=== PATIENT | male | born 1995 | race Caucasian/White ===

== ENCOUNTER 2018-12-03 12:16 | Emergency (ER) | payer BC, OTHER ==
[2018-12-03 13:00] LABS: Absolute Lymphocytes (CBC) 4.2 K/uL (0.7-4.9); Absolute Monocytes 0.4 K/uL (0.1-1.3); Absolute Neutrophil 3.7 K/uL (1.8-8.0); Basophils % 0.9 % (0-1.3); Eosinophils % 2.3 % (0-4.4); Hematocrit 43.2 % (39.6-49.0); Lymphocytes % 49.4 % (15.3-44.8); MPV 9.4 fL (7.6-11.3); Monocytes % 4.4 % (3.3-12.3); RBC Red Blood Cell Count 4.74 M/uL (4.33-5.43)
[2018-12-03 13:34] LABS: ALT/SGPT 58 U/L (12-78); AST/SGOT 41 U/L (15-37); Albumin 3.8 g/dL (3.4-5.0); Alkaline Phosphatase 87 U/L (45-117); BUN Blood Urea Nitrogen 10 mg/dL (7-18); Bicarbonate 28 mmol/L (21-32); Bilirubin Direct 0.2 mg/dL (0-0.2); Bilirubin Total 0.6 mg/dL (0.2-1.0); Glucose Level 100 mg/dL (74-106); Lipase 211 U/L (73-393); Potassium 3.2 mmol/L (3.5-5.1); Protein, Total 7.2 g/dL (6.4-8.2); Sodium Level 144 mmol/L (136-145)
--- NOTE | 2018-12-03 13:51 | RAD REPORT ---
EXAM DESCRIPTION: US - Abdomen Exam Limited - 12/03/2018 1:44 pm CLINICAL HISTORY: EPIGASTRIC PAIN COMPARISON: No comparisons FINDINGS: The gallbladder demonstrates mobile shadowing gallstones. No pericholecystic fluid or gall bladder wall thickening. The common bile duct is normal measuring 4-5 mm. The liver demonstrates no findings of intrahepatic biliary dilatation. IMPRESSION: Cholelithiasis.
[2018-12-03] MEDS ORDERED: PANTOPRAZOLE 40 MG INJ ONE (13:57)
[2018-12-03] MEDS ORDERED: NA CHLORIDE 0.9% 1,000 ML ONE (13:57)
[2018-12-03] MEDS ORDERED: ONDANSETRON 4 MG/2 ML VIAL ONE (13:57)
[2018-12-03] MEDS ORDERED: MORPHINE 4 MG/ML SYR ONE (13:57)
[2018-12-03] MEDS ORDERED: MAGNE/ALUM HYDROXD 30 ML UCUP ONE (14:04)
[2018-12-03] MEDS ORDERED: LIDOCAINE VISCOUS 2% SOLN 15 ML UDC ONE (14:05)
[2018-12-03] MEDS ORDERED: POTASSIUM 25 MEQ EFFERV TAB ONE (14:05)
--- NOTE | 2018-12-03 14:06 | RAD REPORT ---
EXAM DESCRIPTION: RAD - Chest Single View - 12/03/2018 2:00 pm CLINICAL HISTORY: epigastric pain Chest pain. COMPARISON: Chest Single View dated 08/13/2016; Chest Single View dated 07/24/2016; CHEST SINGLE VIEW dated 05/17/2014; CHEST PA AND LAT 2 VIEW dated 12/03/2010 FINDINGS: Portable technique limits examination quality. The lungs are grossly clear. The heart is normal in size. No displaced fractures. IMPRESSION: No acute intrathoracic process suspected.
--- NOTE | 2018-12-03 14:08 | ER ---
Nurse's Notes [facility] Name: Gee Ibanez Age: 23 yrs Sex: Male : 1995 Arrival Date: 12/03/2018 Time: 12:20 Bed 14 Private MD: Diagnosis: Cholelithiasis Presentation: 12/03 12:21 Presenting complaint: Patient states: Epigastric pain that started this AM [employer] DEVELOP[employer] PROFESSION[employer] after aj eating greasy food. Patient reports vomiting x 1 episode. Transition of care: patient was not received from another setting of care. Onset of symptoms was December 03, 2018. Risk Assessment: Do you want to hurt yourself or someone else? Patient reports no desire to harm self or others. Initial Sepsis Screen: Does the patient meet any 2 criteria? No. Patient's initial sepsis screen is negative. Does the patient have a suspected source of infection? No. Patient's initial sepsis screen is negative. Care prior to arrival: None. 12:21 Method Of Arrival: EMS: [facility] 12:21 Acuity: TIERA 3 aj Triage Assessment: 12:23 General: Appears in no apparent distress. uncomfortable, Behavior is calm, cooperative, aj appropriate for age. Pain: Complains of pain in epigastric area. Neuro: Level of Consciousness is awake, alert, obeys commands, Oriented to person, place, time, situation, Appropriate for age. Respiratory: Airway is patent Respiratory effort is even, unlabored, Respiratory pattern is regular, symmetrical. GI: Abdomen is flat. GI: Reports epigastric pain, vomiting. Derm: Skin is intact, is healthy with good turgor, Skin is pink, warm \\T\\ dry. normal. Historical: - Allergies: 12:23 PENICILLINS; aj - Home Meds: 12:23 None [Active]; aj - PMHx: 12:23 "Gallstones"; aj - PSHx: 12:23 None; aj - Immunization history:: Adult Immunizations up to date. - Social history:: Smoking status: Patient/guardian denies using tobacco. - Ebola Screening: : Patient negative for fever greater than or equal to 101.5 degrees Fahrenheit, and additional compatible Ebola Virus Disease symptoms Patient denies exposure to infectious person Patient denies travel to an Ebola-affected area in the 21 days before illness onset No symptoms or risks identified at this time. Screenin:59 Abuse screen: Denies threats or abuse. Denies injuries from another. Nutritional aj screening: No deficits noted. Tuberculosis screening: No symptoms or risk factors identified. Fall Risk None identified. Assessment: 13:59 Reassessment: Patient appears in no apparent distress at this time. No changes from aj previously documented assessment. Patient and/or family updated on plan of care and expected duration. Pain level reassessed. Patient is alert, oriented x 3, equal unlabored respirations, skin warm/dry/pink. Patient states feeling better. 15:15 Reassessment: Patient appears in no apparent distress at this time. No changes from aj previously documented assessment. Patient and/or family updated on plan of care and expected duration. Pain level reassessed. Patient is alert, oriented x 3, equal unlabored respirations, skin warm/dry/pink. Patient states feeling better. Patient states symptoms have improved. Vital Signs: 12:23 BP 133 / 95; Pulse 68; Resp 18; Temp 97.6; Pulse Ox 100% ; aj 13:59 BP 131 / 78; Pulse 86; Resp 19; Pulse Ox 99% on R/A; aj 15:15 BP 134 / 79; Pulse 81; Resp 20; Pulse Ox 99% on R/A; aj ED Course: 12:20 Patient arrived in ED. aj 12:20 Goyo Nunes PA is PHCP. [facility] 12:20 Randal Sabillon MD is Attending Physician. 8 12:22 Triage completed. aj 12:23 Arm band placed on left wrist. Patient placed in an exam room, on a stretcher. aj 12:24 PHCP role handed off by Goyo Nunes PA cp 12:24 Randal Francis PA is PHCP. cp 12:58 Initial lab(s) drawn, by [place], sent to lab. Inserted saline lock: 20 gauge in right 5 antecubital area, using aseptic technique. Blood collected. 12:59 Basic Metabolic Panel Sent. [facility] 12:59 CBC with Diff Sent. 5 12:59 Creatinine for Radiology Sent. [facility] 13:00 Patient has correct armband on for positive identification. Bed in low position. Call [facility] light in reach. Side rails up X 1. Adult w/ patient. Pulse ox on. NIBP on. 13:00 Hepatic Function Sent. [facility] 13:00 Lipase Sent. [facility] 13:42 Kareen Guzman, RN is Primary Nurse. aj 13:44 US Abdomen Limited In Process Unspecified. EDMS 14:00 XRAY Chest (1 view) In Process Unspecified. EDMS 14:07 Ramakrishna Villafana MD is Referral Physician. cp 15:15 No provider procedures requiring assistance completed. IV discontinued, intact, aj bleeding controlled, No redness/swelling at site. Pressure dressing applied. Administered Medications: 13:52 Drug: ProTONIX 40 mg Route: IVP; Site: right antecubital; aj 14:09 Follow up: Response: No adverse reaction aj 13:53 Drug: Zofran 4 mg Route: IVP; Site: right antecubital; aj 14:09 Follow up: Response: No adverse reaction aj 13:53 Drug: morphine 2 mg Route: IVP; Site: right antecubital; aj 14:08 Follow up: Response: Pain is decreased aj 13:53 Drug: NS 0.9% 1000 ml Route: IV; Rate: 1 bolus; Site: right antecubital; aj 15:17 Follow up: Response: No adverse reaction; IV Status: Completed infusion; IV Intake: aj 1000ml 13:58 Drug: GI Cocktail without - (Maalox Suspension 30 ml, Lidocaine Liquid 2 % 15 aj ml) Route: PO; 15:17 Follow up: Response: No adverse reaction aj 13:58 Drug: Potassium Effervescent Tablet 50 mEq Route: PO; aj 15:18 Follow up: Response: No adverse reaction aj Intake: 15:17 IV: 1000ml; Total: 1000ml. aj Outcome: 14:08 Discharge ordered by . cp 15:15 Discharged to home ambulatory. aj 15:15 Condition: good 15:15 Discharge instructions given to patient, Instructed on discharge instructions, follow up and referral plans. medication usage, Demonstrated understanding of instructions, follow-up care, medications, Prescriptions given X 2. 15:18 Patient left the ED. aj Signatures: Dispatcher [employer] Kareen Berg RN RN aj Roszak, Josh, PA PA jr8 Randal Francis PA PA cp Martinez, Maria [facility]
--- NOTE | 2018-12-03 14:08 | EDPHYS ---
Physician Documentation [facility] Name: Gee Ibanez Age: 23 yrs Sex: Male : 1995 Arrival Date: 12/03/2018 Time: 12:20 Bed 14 Private MD: ED Physician Randal Sabillon HPI: 12/03 12:33 This 23 yrs old Male presents to ER via EMS with complaints of Epigastric cp Pain. 12:33 The patient presents with abdominal pain in the upper abdomen. cp 12:33 Onset: The symptoms/episode began/occurred this morning. The symptoms radiate to back. cp 12:33 Associated signs and symptoms: Pertinent positives: nausea, vomiting, Pertinent cp negatives: chest pain, constipation, diarrhea, fever, testicular pain, vomiting blood. The symptoms are described as constant. The patient has experienced similar episodes in the past, today's symptoms are similar, to when the patient was apparently diagnosed with gallstones. Historical: - Allergies: 12:23 PENICILLINS; aj - Home Meds: 12:23 None [Active]; aj - PMHx: 12:23 "Gallstones"; aj - PSHx: 12:23 None; aj - Immunization history:: Adult Immunizations up to date. - Social history:: Smoking status: Patient/guardian denies using tobacco. - Ebola Screening: : Patient negative for fever greater than or equal to 101.5 degrees Fahrenheit, and additional compatible Ebola Virus Disease symptoms Patient denies exposure to infectious person Patient denies travel to an Ebola-affected area in the 21 days before illness onset No symptoms or risks identified at this time. ROS: 12:40 Constitutional: Negative for body aches, chills, fever, poor PO intake. cp 12:40 Eyes: Negative for injury, pain, redness, and discharge. cp 12:40 ENT: Negative for drainage from ear(s), ear pain, sore throat, difficulty swallowing, difficulty handling secretions. 12:40 Cardiovascular: Negative for chest pain, palpitations. 12:40 Respiratory: Negative for cough, shortness of breath, wheezing. 12:40 Abdomen/GI: Positive for abdominal pain, nausea, vomiting, Negative for diarrhea, constipation, dysphagia, hematemesis, black/tarry stool, rectal bleeding. 12:40 Back: Positive for radiated pain. 12:40 Skin: Negative for cellulitis, rash. 12:40 Neuro: Negative for altered mental status, headache, weakness. 12:40 All other systems are negative. Exam: 12:45 Head/Face: Normocephalic, atraumatic. Eyes: Pupils equal round and reactive to light, cp extra-ocular motions intact. Lids and lashes normal. Conjunctiva and sclera are non-icteric and not injected. Cornea within normal limits. Periorbital areas with no swelling, redness, or edema. ENT: Nares patent. No nasal discharge, no septal abnormalities noted. Tympanic membranes are normal and external auditory canals are clear. Oropharynx with no redness, swelling, or masses, exudates, or evidence of obstruction, uvula midline. Mucous membranes moist. 12:45 Constitutional: The patient appears in no acute distress, alert, awake, non-toxic, well developed, well nourished, uncomfortable. 12:45 Chest/axilla: Inspection: normal, Palpation: is normal, no crepitus, no tenderness. cp 12:45 Cardiovascular: Rate: normal, Rhythm: regular, Heart sounds: murmur, not appreciated. 12:45 Respiratory: the patient does not display signs of respiratory distress, Respirations: normal, no use of accessory muscles, no retractions, no splinting, no tachypnea, labored breathing, is not present, Breath sounds: are clear throughout, no decreased breath sounds, no stridor, no wheezing. 12:45 Abdomen/GI: Inspection: abdomen appears normal, Bowel sounds: active, all quadrants, Palpation: soft, in all quadrants, moderate abdominal tenderness, in the epigastric area and right upper quadrant, rebound tenderness, is not appreciated, voluntary guarding, is elicited in the epigastric area and right upper quadrant. 12:45 Back: pain, that is mild, ROM is normal. 12:45 Skin: cellulitis, is not appreciated, no rash present. Vital Signs: 12:23 BP 133 / 95; Pulse 68; Resp 18; Temp 97.6; Pulse Ox 100% ; aj 13:59 BP 131 / 78; Pulse 86; Resp 19; Pulse Ox 99% on R/A; aj 15:15 BP 134 / 79; Pulse 81; Resp 20; Pulse Ox 99% on R/A; aj MDM: 12:20 Patient medically screened. jr8 14:06 Data reviewed: vital signs, nurses notes, lab test result(s), radiologic studies, plain cp films, ultrasound, and as a result, I will discharge patient. Test interpretation: by ED physician or midlevel provider: plain radiologic studies. Counseling: I had a detailed discussion with the patient and/or guardian regarding: the historical points, exam findings, and any diagnostic results supporting the discharge/admit diagnosis, lab results, radiology results, the need for outpatient follow up, for definitive care, a general surgeon, to return to the emergency department if symptoms worsen or persist or if there are any questions or concerns that arise at home. Response to treatment: the patient's symptoms have markedly improved after treatment. 12/03 12:29 Order name: Basic Metabolic Panel; Complete Time: 13:44 cp 12/03 13:45 Interpretation: Normal except: K 3.2. cp 12/03 12:29 Order name: CBC with Diff; Complete Time: 13:22 cp 12/03 12:29 Order name: Creatinine for Radiology; Complete Time: 13:44 cp 12/03 12:29 Order name: Hepatic Function; Complete Time: 13:44 cp 12/03 12:29 Order name: Lipase; Complete Time: 13:44 cp 12/03 13:24 Order name: XRAY Chest (1 view); Complete Time: 14:09 cp 12/03 12:29 Order name: IV Saline Lock; Complete Time: 13:00 cp 12/03 13:24 Order name: US Abdomen Limited; Complete Time: 14:06 cp 12/03 12:29 Order name: Labs collected and sent; Complete Time: 13:00 cp 12/03 13:24 Order name: NPO; Complete Time: 14:58 cp Administered Medications: 13:52 Drug: ProTONIX 40 mg Route: IVP; Site: right antecubital; aj 14:09 Follow up: Response: No adverse reaction aj 13:53 Drug: Zofran 4 mg Route: IVP; Site: right antecubital; aj 14:09 Follow up: Response: No adverse reaction aj 13:53 Drug: morphine 2 mg Route: IVP; Site: right antecubital; aj 14:08 Follow up: Response: Pain is decreased aj 13:53 Drug: NS 0.9% 1000 ml Route: IV; Rate: 1 bolus; Site: right antecubital; aj 15:17 Follow up: Response: No adverse reaction; IV Status: Completed infusion; IV Intake: aj 1000ml 13:58 Drug: GI Cocktail without - (Maalox Suspension 30 ml, Lidocaine Liquid 2 % 15 aj ml) Route: PO; 15:17 Follow up: Response: No adverse reaction aj 13:58 Drug: Potassium Effervescent Tablet 50 mEq Route: PO; aj 15:18 Follow up: Response: No adverse reaction Disposition: 15:41 Co-signature as Attending Physician, Randal Sabillon MD I agree with the assessment and phoebe plan of care. Disposition: 12/03/18 14:08 Discharged to Home. Impression: Cholelithiasis. - Condition is Stable. - Discharge Instructions: Biliary Colic, Adult, Cholelithiasis. - Prescriptions for Bentyl 20 mg Oral Tablet - take 2 tablet by ORAL route every 6 hours As needed; 40 tablet. Zofran 4 mg Oral Tablet - take 1 tablet by ORAL route every 12 hours As needed; 20 tablet. - Medication Reconciliation Form, Thank You Letter, Antibiotic Education, Prescription Opioid Use form. - Follow up: Ramakrishna Villafana MD; When: Tomorrow; Reason: Recheck today's complaints. - Problem is an ongoing problem. - Symptoms have improved. Signatures: Dispatcher [employer] EDKareen English RN RN aj Anderson, Corey, MD MD cha Roszak, Josh, PA PA jr8 Randal Francis PA PA cp Corrections: (The following items were deleted from the chart) 15:18 14:08 12/03/2018 14:08 Discharged to Home. Impression: Cholelithiasis. Condition is aj Stable. Forms are Medication Reconciliation Form, Thank You Letter, Antibiotic Education, Prescription Opioid Use. Follow up: Ramakrishna Villafana; When: Tomorrow; Reason: Recheck today's complaints. Problem is an ongoing problem. Symptoms have improved. cp
== END 2018-12-03 15:18 | disposition home or self-care (01) ==
LOC: ER 12:16
DX: K80.20 Calculus of gallbladder without cholecystitis without obstruction (principal)
CPT/HCPCS: 36415; 71045; 76705; 80048; 80076; 83690; 85025; 96361; 96374; 96375; 99284; C9113; J2405; J7030

== ENCOUNTER 2022-06-03 06:31 | Inpatient (IN) | payer BC, OTHER, SELFPAY ==
[2022-06-03 06:56] LABS: Hematocrit 41.3 % (39.6-49.0); Lymphocytes % 37.7 % (15.3-44.8); MCV 90.4 fL (80-100); MPV 8.8 fL (7.6-11.3); RBC Red Blood Cell Count 4.57 M/uL (4.33-5.43)
[2022-06-03 07:19] LABS: Potassium 3.7 mmol/L (3.5-5.1); Troponin High Sensitivity 3.9 pg/mL (<58.9)
[2022-06-03] MEDS ORDERED: ASPIRIN 81 MG CHEWABLE TABLET ONE ×2 (07:23→07:25)
[2022-06-03] MEDS ORDERED: FAMOTIDINE 20 MG/2 ML VIAL IV ONE (07:23)
[2022-06-03] MEDS ORDERED: LIDOCAINE VISCOUS 2% SOLN 15 ML UDC ONE (07:46)
[2022-06-03] MEDS ORDERED: ONDANSETRON 4 MG/2 ML VIAL ONE (07:46)
[2022-06-03] MEDS ORDERED: MAGNES/ALUMIN/SIMET 30ML UCUP ONE (07:46)
--- NOTE | 2022-06-03 08:15 | RAD REPORT ---
EXAM DESCRIPTION: US - Abdomen Exam Limited - 06/03/2022 7:09 am CLINICAL HISTORY: ABD PAIN COMPARISON: Abdomen Exam Limited dated 12/03/2018 FINDINGS: The gallbladder demonstrates numerous shadowing gallstones. No pericholecystic fluid or ga llbladder wall thickening. The common bile duct is normal measuring 4 mm. The liver demonstrates no findings of intrahepatic biliary dilatation. IMPRESSION: Cholelithiasis.
[2022-06-03 08:17] LABS: Albumin 3.8 g/dL (3.4-5.0); Bilirubin Direct 0.2 mg/dL (0-0.2); Bilirubin Total 0.4 mg/dL (0.2-1.0); Protein, Total 7.4 g/dL (6.4-8.2)
--- NOTE | 2022-06-03 08:26 | RAD REPORT ---
EXAM DESCRIPTION: RAD - Chest Single View - 06/03/2022 6:55 am CLINICAL HISTORY: CHEST PAIN Chest pain. COMPARISON: Chest Single View dated 12/03/2018; Chest Single View dated 08/13/2016; Chest Single View dated 07/24/2016; CHEST SINGLE VIEW dated 05/17/2014 FINDINGS: Portable technique limits examination quality. The lungs are grossly clear. The heart is normal in size. No displaced fractures. IMPRESSION: No acute intrathoracic process suspected.
--- NOTE | 2022-06-03 08:57 | RAD REPORT ---
EXAM DESCRIPTION: CTAbdomen Pelvis W Contrast - 06/03/2022 8:43 am CLINICAL HISTORY: Abdominal pain. Abdominal pain, acute, nonlocalized COMPARISON: No comparisons TECHNIQUE: Biphasic CT imaging of the abdomen and pelvis was performed with 100 ml non-ionic IV cont rast. All CT scans are performed using dose optimization technique as appropriate and may include automated exposure control or mA/KV adjustment according to patient size. FINDINGS: The lung bases are clear. The liver, spleen, pancreas, adrenal glands and kidneys are within normal limits. Multi stone choleli thiasis is noted with gallbladder distension. No bowel obstruction, free air, free fluid or abscess. The appendix is normal. No evidence of signi ficant lymphadenopathy. No suspicious bony findings. IMPRESSION: Extensive cholelithiasis with gallbladder distension noted. If cholecystitis remains a c linical concern, follow-up HIDA scan would be recommended.
[2022-06-03 09:11] LABS: Urine Blood Negative (Negative); Urine Glucose Negative (Negative); Urine Protein Negative (Negative); Urine pH 5.5 (5.0-7.0)
--- NOTE | 2022-06-03 09:25 | EDPHYS ---
Physician Documentation [facility] Name: Gee Ibanez Age: 27 yrs Sex: Male : 1995 Arrival Date: 06/03/2022 Time: 06:33 Bed 16 Private MD: ED Physician Jeremy Petit HPI: 06/03 07:18 This 27 yrs old Male presents to ER via Ambulatory with complaints of abdominal pain, rn Back Pain. 07:18 The patient presents with abdominal pain in the epigastric area. Onset: The rn symptoms/episode began/occurred this morning. The symptoms radiate to back. Associated signs and symptoms: Pertinent positives: nausea, Pertinent negatives: blood in stools, fever, hematuria, shortness of breath, vomiting, vomiting blood. The symptoms are described as burning. Modifying factors: The symptoms are alleviated by nothing, the symptoms are aggravated by nothing. Severity of pain: At its worst the pain was moderate in the emergency department the pain is unchanged. The patient has experienced similar episodes in the past. The patient has not recently seen a physician. Pt reports epigastric abd pain, radiates to back, began this AM, has had multiple times in past, told either gallstones or heartburn, this time not going away. No fever. No vomiting. . Historical: - Allergies: 06:51 PENICILLINS; vc1 - Home Meds: 06:51 None [Active]; vc1 - PMHx: 06:51 "Gallstones"; vc1 - PSHx: 06:51 None; vc1 - Immunization history:: Adult Immunizations up to date, Client reports having NOT received the Covid vaccine. Flu vaccine is up to date. - Social history:: Smoking status: Reported history of juuling and/or vaping. Patient/guardian denies using street drugs, IV drugs. - Family history:: not pertinent. - Hospitalizations: : No recent hospitalization is reported. ROS: 07:18 Constitutional: Negative for fever, chills, and weight loss, Eyes: Negative for injury, rn pain, redness, and discharge, ENT: Negative for injury, pain, and discharge, Neck: Negative for injury, pain, and swelling, Cardiovascular: Negative for chest pain, palpitations, and edema, Respiratory: Negative for shortness of breath, cough, wheezing, and pleuritic chest pain, Abdomen/GI: + epigastric abd pain Back: Negative for injury MS/Extremity: Negative for injury and deformity, Skin: Negative for injury, rash, and discoloration, Neuro: Negative for headache, weakness, numbness, tingling, and seizure. Exam: 06:55 ECG was reviewed by the Attending Physician. phoebe 07:18 Constitutional: This is a well developed, well nourished patient who is awake, alert, rn getting u/s performed, seems uncomfortable Head/Face: Normocephalic, atraumatic. Eyes: Periorbital areas with no swelling, redness, or edema. Cardiovascular: Bradycardic, regular. No pulse deficits. Respiratory: No increased work of breathing, no retractions or nasal flaring. Abdomen/GI: Soft, mild epigastric tenderness, no rebound. Skin: Warm, dry MS/ Extremity: Pulses equal, no cyanosis. Neurovascular intact. Full, normal range of motion. Equal circumference. Neuro: Awake and alert, GCS 15 Vital Signs: 06:47 BP 160 / 90 LA (auto/reg); Pulse 52 LA; Resp 23 S; Temp 98.0(O); Pulse Ox 100% on R/A; vc1 Weight 88.45 kg (R); Height 6 ft. 1 in. (185.42 cm) (R); Pain 8/10; 08:00 BP 122 / 90; Pulse 48; Resp 17 S; Pulse Ox 100% on R/A; jg9 09:00 BP 117 / 86; Pulse 48; Resp 20 S; Pulse Ox 100% on R/A; jg9 10:00 BP 127 / 94; Pulse 54; Resp 15 S; Pulse Ox 100% on R/A; jg9 10:45 BP 122 / 95; Pulse 57; Resp 12; Pulse Ox 100% on R/A; jg9 12:00 BP 130 / 92; Pulse 57; Resp 12 S; Pulse Ox 100% on R/A; jg9 06:47 Body Mass Index 25.73 (88.45 kg, 185.42 cm) vc1 MDM: 06:49 Patient medically screened. phoebe 09:22 Differential diagnosis: cholecystitis, Cholelithiasis, gastritis, gastroesophageal rn reflux disease, non-specific abd pain, pancreatitis, Peptic Ulcer Disease. Data reviewed: vital signs, nurses notes, lab test result(s), radiologic studies, CT scan, ultrasound, and as a result, I will admit patient. Counseling: I had a detailed discussion with the patient and/or guardian regarding: the historical points, exam findings, and any diagnostic results supporting the discharge/admit diagnosis, lab results, radiology results, the need for further work-up and treatment in the hospital. Response to treatment: the patient's symptoms have markedly improved after treatment, and as a result, I will admit patient. Admission orders: after a detailed discussion of the patient's condition and case, the admit orders are written by me. Special discussion:. ED course: Consulted with Dr. Coleman, recommends admission to hospitalist service, to get MRCP, does not see need for GI intervention at this time given normal LFTs.. 06/03 06:41 Order name: Basic Metabolic Panel; Complete Time: 07:54 [facility] 06/03 06:41 Order name: CBC with Diff; Complete Time: 07:54 [facility] 06/03 06:41 Order name: Troponin HS; Complete Time: 07:54 [facility] 06/03 06:51 Order name: COVID-19 SARS RT PCR (Document "Date of Onset" if Symptomatic); Complete mw2 Time: 08:06 06/03 06:53 Order name: UDS; Complete Time: 18:56 [facility] 06/03 06:53 Order name: SARS-COV-2 RT PCR (Document "Date of Onset" if Symptomatic) [facility] 06/03 07:54 Order name: LFT's; Complete Time: 08:22 06/03 08:04 Order name: Lipase; Complete Time: 08:22 [facility] 06/03 09:11 Order name: Urine Dipstick-Ancillary; Complete Time: 09:14 [facility] 06/03 15:01 Order name: CBC with Automated Diff [facility] 06/03 15:01 Order name: CBC with Automated Diff [facility] 06/03 15:01 Order name: Comprehensive Metabolic Panel [facility] 06/03 15:01 Order name: Comprehensive Metabolic Panel [facility] 06/03 06:41 Order name: XRAY Chest (1 view); Complete Time: 08:49 [facility] 06/03 06:41 Order name: EKG; Complete Time: 06:42 [facility] 06/03 06:53 Order name: US Abdomen Limited; Complete Time: 08:22 [facility] 06/03 08:22 Order name: CT Abd/Pelvis - IV Contrast Only; Complete Time: 09:14 rn 06/03 15:01 Order name: CONS Physician Consult [facility] 06/03 15:01 Order name: NPO [facility] 06/03 15:01 Order name: Protime (+INR) [facility] 06/03 15:01 Order name: Protime (+INR) [facility] 06/03 15:01 Order name: PTT, Activated Partial Thromb [facility] 06/03 15:01 Order name: PTT, Activated Partial Thromb [facility] 06/03 15:01 Order name: Lipase [facility] 06/03 06:41 Order name: Cardiac monitoring; Complete Time: 06:41 [facility] 06/03 06:41 Order name: EKG - Nurse/Tech; Complete Time: 06:41 [facility] 06/03 06:41 Order name: IV Saline Lock; Complete Time: 06:49 [facility] 06/03 06:41 Order name: Labs collected and sent; Complete Time: 06:49 [facility] 06/03 06:41 Order name: O2 Per Protocol; Complete Time: 06:41 [facility] 06/03 06:41 Order name: O2 Sat Monitoring; Complete Time: 06:41 [facility] 06/03 06:53 Order name: Urine Dipstick-Ancillary (obtain specimen); Complete Time: 12:01 [facility] EC:55 Rate is 49 beats/min. Rhythm is regular. QRS [place] is Normal. [place] interval is normal. QRS [place] interval is normal. QT interval is normal. No Q waves. T waves are Normal. No ST changes noted. Clinical impression: Sinus bradycardia and No evidence of ischemia. Interpreted by me. Reviewed by me. Administered Medications: 07:25 Drug: Pepcid (famotidine) 20 mg Route: IVP; Site: right antecubital; jg9 08:20 Follow up: Response: No adverse reaction; Marked relief of symptoms jg9 07:30 Drug: Aspirin Chewable Tablet 162 mg Route: PO; jg9 08:21 Follow up: Response: No adverse reaction jg9 07:40 Drug: GI Cocktail without - (Maalox Suspension 30 ml, Lidocaine Liquid 2 % 15 jg9 ml) Route: PO; 08:20 Follow up: Response: No adverse reaction; Marked relief of symptoms jg9 07:42 Drug: Zofran (Ondansetron) 4 mg Route: IVP; Site: right antecubital; jg9 08:19 Follow up: Response: No adverse reaction; Nausea is decreased jg9 Disposition Summary: 06/03/22 09:24 Hospitalization Ordered Hospitalization Status: Inpatient Admission rn Provider: Michele Torres rn Location: Telemetry/MedSur (Inpatient) rn Condition: Stable rn Problem: new rn Symptoms: have improved rn Bed/Room Type: Standard rn Room Assignment: 217(06/03/22 19:19) Diagnosis - Other cholelithiasis without obstruction rn Forms: - Medication Reconciliation Form rn - SBAR form rn Signatures: Dispatcher [employer] EDMS Randal Sabillon MD MD cha Nieto, Roman, MD MD rn Garcia, Cindy, RN RN cg Gibson, Lacie RN RN [email or web address] Leslie Martínez RN RN jg9 Erika Real RN RN vc1 Corrections: (The following items were deleted from the chart) 07:42 06:54 Angio Aorta For Dissection+CT.RAD.BRZ ordered. EDMS EDMS 08:04 06:54 LIPASE+C.LAB.BRZ ordered. EDMS EDMS 19:19 09:24 rn cg
--- NOTE | 2022-06-03 09:25 | ER ---
Nurse's Notes [facility] Name: Gee Ibanez Age: 27 yrs Sex: Male : 1995 Arrival Date: 06/03/2022 Time: 06:33 Bed 16 Private MD: Diagnosis: Other cholelithiasis without obstruction Presentation: 06/03 06:47 Chief complaint: Patient states: "I woke up out of a sleep with horrible chest vc1 pain that moves to my back. I took some Tums hoping it would help but it didn't.". Coronavirus screen: Vaccine status: Patient reports being unvaccinated. At this time, the client does not indicate any symptoms associated with coronavirus-19. Ebola Screen: No symptoms or risks identified at this time. Initial Sepsis Screen: Does the patient meet any 2 criteria? RR > 20 per min. No. Patient's initial sepsis screen is negative. Does the patient have a suspected source of infection? No. Patient's initial sepsis screen is negative. Risk Assessment: Do you want to hurt yourself or someone else? Patient reports no desire to harm self or others. Onset of symptoms was June 03, 2022 at 05:00. 06:47 Method Of Arrival: Ambulatory vc1 06:47 Acuity: TIERA 3 vc1 06:52 Care prior to arrival: Medication(s) given: Tums. vc1 Triage Assessment: 06:52 General: Appears in no apparent distress. uncomfortable, ill, Behavior is cooperative, vc1 appropriate for age. Pain: Complains of pain in mid-sternal area Pain radiates to left subscapular area, right subscapular area and thoracic area Pain currently is 8 out of 10 on a pain scale. Quality of pain is described as burning, Pain began suddenly, Is continuous. EENT: No deficits noted. Neuro: Level of Consciousness is awake, alert, obeys commands, Oriented to person, place, time, situation, Appropriate for age. Cardiovascular: Reports chest pain. Respiratory: Airway is patent Respiratory effort is even, unlabored, Respiratory pattern is regular, symmetrical, tachypnea. GI: No deficits noted. : No deficits noted. Derm: Skin is intact, is healthy with good turgor, Skin is clammy. Musculoskeletal: No deficits noted. No signs and/or symptoms reported regarding the musculoskeletal system. Historical: - Allergies: 06:51 PENICILLINS; vc1 - Home Meds: 06:51 None [Active]; vc1 - PMHx: 06:51 "Gallstones"; vc1 - PSHx: 06:51 None; vc1 - Immunization history:: Adult Immunizations up to date, Client reports having NOT received the Covid vaccine. Flu vaccine is up to date. - Social history:: Smoking status: Reported history of juuling and/or vaping. Patient/guardian denies using street drugs, IV drugs. - Family history:: not pertinent. - Hospitalizations: : No recent hospitalization is reported. Screenin:56 Abuse screen: Denies threats or abuse. Nutritional screening: No deficits noted. vc1 Tuberculosis screening: No symptoms or risk factors identified. Fall Risk None identified. Assessment: 07:00 Reassessment: No changes from previously documented assessment. Patient and/or family jg9 updated on plan of care and expected duration. Pain level reassessed. Patient is alert, oriented x 3, equal unlabored respirations, skin warm/dry/pink. Pain: Complains of pain in back and thoracic area and right subscapular area and left subscapular area and chest and mid-sternal area. 08:00 Reassessment: Patient and/or family updated on plan of care and expected duration. Pain jg9 level reassessed. Patient is alert, oriented x 3, equal unlabored respirations, skin warm/dry/pink. Patient states feeling better. Patient states symptoms have improved. 10:00 Reassessment: No changes from previously documented assessment. Patient and/or family jg9 updated on plan of care and expected duration. Pain level reassessed. Patient is alert, oriented x 3, equal unlabored respirations, skin warm/dry/pink. 12:00 Reassessment: No changes from previously documented assessment. Patient and/or family jg9 updated on plan of care and expected duration. Pain level reassessed. Patient is alert, oriented x 3, equal unlabored respirations, skin warm/dry/pink. Vital Signs: 06:47 BP 160 / 90 LA (auto/reg); Pulse 52 LA; Resp 23 S; Temp 98.0(O); Pulse Ox 100% on R/A; vc1 Weight 88.45 kg (R); Height 6 ft. 1 in. (185.42 cm) (R); Pain 8/10; 08:00 BP 122 / 90; Pulse 48; Resp 17 S; Pulse Ox 100% on R/A; jg9 09:00 BP 117 / 86; Pulse 48; Resp 20 S; Pulse Ox 100% on R/A; jg9 10:00 BP 127 / 94; Pulse 54; Resp 15 S; Pulse Ox 100% on R/A; jg9 10:45 BP 122 / 95; Pulse 57; Resp 12; Pulse Ox 100% on R/A; jg9 12:00 BP 130 / 92; Pulse 57; Resp 12 S; Pulse Ox 100% on R/A; jg9 06:47 Body Mass Index 25.73 (88.45 kg, 185.42 cm) vc1 ED Course: 06:33 Patient arrived in ED. bp1 06:38 Florinda Wang, RN is Primary Nurse. lg3 06:49 Randal Sabillon MD is Attending Physician. phoebe 06:49 Inserted saline lock: 20 gauge in right antecubital area, using aseptic technique. lg3 Blood collected. 06:51 Triage completed. vc1 06:55 Arm band placed on right wrist. vc1 06:57 XRAY Chest (1 view) In Process Unspecified. EDMS 06:59 SARS-COV-2 RT PCR (Document "Date of Onset" if Symptomatic) Sent. vc1 07:00 Attending Physician role handed off by Randal Sabillon MD rn 07:00 Jeremy Petit MD is Attending Physician. rn 07:02 COVID-19 SARS RT PCR (Document "Date of Onset" if Symptomatic) Sent. lg3 07:10 US Abdomen Limited In Process Unspecified. EDMS 08:34 Primary Nurse role handed off by Florinda Wang, JERAD jl7 08:44 CT Abd/Pelvis - IV Contrast Only In Process Unspecified. EDMS 09:23 Michele Torres MD is Hospitalizing Provider. rn 09:32 Leslie Martínez, JERAD is Primary Nurse. jg9 11:26 Patient maintains SpO2 saturation greater than 95% on room air. jg9 11:26 Patient has correct armband on for positive identification. Bed in low position. Call jg9 light in reach. Client placed on continuous cardiac and pulse oximetry monitoring. NIBP monitoring applied. 12:06 No apparent distress. Resting quietly. Awaiting bed assignment. Pt visited by jg9 grandmother. Administered Medications: 07:25 Drug: Pepcid (famotidine) 20 mg Route: IVP; Site: right antecubital; jg9 08:20 Follow up: Response: No adverse reaction; Marked relief of symptoms jg9 07:30 Drug: Aspirin Chewable Tablet 162 mg Route: PO; jg9 08:21 Follow up: Response: No adverse reaction jg9 07:40 Drug: GI Cocktail without - (Maalox Suspension 30 ml, Lidocaine Liquid 2 % 15 jg9 ml) Route: PO; 08:20 Follow up: Response: No adverse reaction; Marked relief of symptoms jg9 07:42 Drug: Zofran (Ondansetron) 4 mg Route: IVP; Site: right antecubital; jg9 08:19 Follow up: Response: No adverse reaction; Nausea is decreased jg9 Outcome: 09:24 Decision to Hospitalize by Provider. rn 20:17 Patient left the ED. jb4 Signatures: Dispatcher [employer] EDMS Randal Sabillon MD MD cha Nieto, Roman, MD MD rn Bryson, James RN RN jb4 Telma Chang RN RN jl7 Florinda Wang, RN RN lg3 Zulma Garcia Jennifer, RN RN jg9 Erika Real RN RN vc1
[2022-06-03 10:01] LABS: Barbiturates NEGATIVE (NEGATIVE); Benzodiazepines NEGATIVE (NEGATIVE); Cocaine NEGATIVE (NEGATIVE); METHAMPHETAM NEGATIVE (NEGATIVE); Methadone NEGATIVE (NEGATIVE); Opiates NEGATIVE (NEGATIVE); Phencyclidine NEGATIVE (NEGATIVE); THC Cannibis POSITIVE (NEGATIVE)
--- NOTE | 2022-06-03 12:42 | CON ---
Date of Consultation: 06/03/2022 Reason For Service: Right upper quadrant abdominal pain, epigastric pain, pancreatitis, symptomatic cholelithiasis, possible gallstone pancreatitis. History Of Present Illness: This is the case of a 27-year-old patient, who comes to us with abdomina l pain, started this morning, associated with nausea, vomiting. The pain is in epigastric area. He got dressed, wants to work, he got to school, but the pain was worse and he could not go to work, com plete the trip to work, so he came to the ER and evaluated by the ER physician. They found to have a distended gallbladder, epigastric pain, Peck sign positive, but also an elevated lipase of 600. H e was diagnosed with pancreatitis, symptomatic cholelithiasis, possible gallstone pancreatitis, epiga stric and right upper quadrant abdominal pain, intractable, so the patient was admitted to the hospit al and a surgical consult was obtained for the possibility of a cholecystectomy. The patient also is having pending an MRCP to rule out any common bile duct blocking the pancreas. Past Medical History: None. Allergies: PENICILLIN. Past Surgical History: None. Medications: None. Family History: Noncontributory. Social History: No IV drugs or alcohol. Review of Systems: Nausea, vomiting, abdominal pain radiating to the back. No shortness of breath. No chest pain. No fever. Physical Examination: General: The patient is awake, alert. HEENT: Pupils are equal and reactive. Anicteric. Neck: Supple. Chest: Clear. Abdomen: Epigastric right upper quadrant tenderness with Peck sign positive. Extremities: Good capillary refill. Rectal: Deferred. Laboratory Data: Blood work shows sodium 142, potassium is 3.7, chloride is 111, total bilirubin of 0.4, alkaline phosphatase is 71, lipase 654. Abdominal ultrasound shows cholelithiasis with common b ile duct measuring about 4 mm. CAT scan of the abdomen and pelvis shows extensive cholelithiasis wit h gallbladder distention, cannot rule out cholecystitis. Assessment: It is a 27-year-old patient with an elevated lipase, epigastric pain, extensive gallston es, gallbladder distention, cannot rule out cholecystitis or gallstone pancreatitis. From the surgic al standpoint, the pain is intractable, so he is going to be admitted to the hospital. He is going t o continue workup. We discussed the case with the ER physician and they are going to get an MRCP to make sure there is no stone blocking the common bile duct and causing the pancreatitis. If that is n ot the case, then we will offer him laparoscopic also possible open cholecystectomy with benefits, al ternatives, and risks including, but not limited to infection, bleeding, damage to adjacent structure s, anesthesia complication, bile leak, pancreatitis, MO, and even . He also understands this ma y not relieve any symptoms. He might need more than one surgical intervention. He was explained all the pros and cons of the surgery like I just discussed as above. Once again, we will obtain an MRCP and the pancreatitis to improve. DALLAS/VICKEY Voice ID: [id number] Report ID: [id number]
--- NOTE | 2022-06-03 13:56 | EKG ---
Test Date: 2022-06-03 Test Time: 06:47:10 [place]: MEASUREMENT RESULTS: Intervals: Rate: 49 KS: 152 QRSD: 88 QT: 428 QTc: 386 [place]: P: 70 KS: 152 QRS: 75 T: 64 INTERPRETIVE STATEMENTS: Marked sinus bradycardia Abnormal ECG Compared to ECG 08/13/2016 05:29:59 No significant changes Electronically Signed On 06-03-22 13:49:46 CDT by Jem Saeed
[2022-06-03] MEDS ORDERED: ACETAMINOPHEN 500 MG TAB PO PRN (14:57)
[2022-06-03] MEDS ORDERED: ONDANSETRON 4 MG/2 ML VIAL IV PRN (14:57)
[2022-06-03] MEDS: NA CHLORIDE 0.9% 1,000 ML IV SCH (15:00)
[2022-06-03 15:15] VITALS: BMI 25.7
[2022-06-03] MEDS ORDERED: NA CHLORIDE 0.9% 1,000 ML ONE (18:21)
[2022-06-03 21:14] VITALS: O2SAT 100
--- NOTE | 2022-06-03 22:40 | P.HP ---
Certification for Inpatient Patient admitted to: Inpatient With expected LOS: >2 Midnights Patient will require the following post-hospital care: None Practitioner: I am a practitioner with admitting privileges, knowledge of patient current condition, hospital course, and medical plan of care. Services: Services provided to patient in accordance with Admission requirements found in Title 42 Section 412.3 of the Code of Federal Regulations Patient History Date of Service: 06/03/22 Reason for admission: Cholelithiasis with acute pancreatitis History of Present Illness: patient is a 27-year-old gentleman who came to the hospital with severe abdominal pain. Pain was mainly in the epigastric area and radiated to the right upper quadrant. Patient had imaging studies which revealed acute cholelithiasis with acute pancreatitis. Lipase is elevated as well. Patient will be admitted to the hospital for further treatment. Patient denied alcohol use. He states he has been told he has gallstones. This is the 2nd time he has had recurring episode. He will be admitted for further treatment. Allergies Penicillins Allergy (Severe, Verified 04/16/13 14:32) Anaphylaxis Home Medications: NK [No Home Meds] 06/03/22 - Past Medical/Surgical History Has patient received pneumonia vaccine in the past: No -: Cholelithiasis Past Surgical History: Patient denies surgical history - Family History Father Family History: Reviewed- Non-Contributory - Social History Smoking Status: Current every day smoker Alcohol use: No CD- Drugs: Yes Caffeine use: No Review of Systems 10-point ROS is otherwise unremarkable Physical Examination - Vital Signs Temperature: 97.7 F Blood Pressure: 137/83 Pulse: 69 Respirations: 15 Pulse Ox (%): 100 - Physical Exam General: Alert, In no apparent distress, Oriented x3 HEENT: Atraumatic, PERRLA, Mucous membr. moist/pink, EOMI, Sclerae nonicteric Neck: Supple, 2+ carotid pulse no bruit, No LAD, Without JVD or thyroid abnormality Respiratory: Clear to auscultation bilaterally, Normal air movement Cardiovascular: Regular rate/rhythm, Normal S1 S2 Gastrointestinal: Normal bowel sounds, Soft and benign, Non-distended ( had), Tenderness, Rebound, Guarding Musculoskeletal: No tenderness Integumentary: No rashes Neurological: Normal gait, Normal speech, Normal strength at 5/5 x4 extr, Normal tone, Normal affect Lymphatics: No axilla or inguinal lymphadenopathy - Studies Laboratory Data (last 24 hrs) 06/03/22 06:53: Lipase Cancelled 06/03/22 06:48: Total Bilirubin 0.4, AST 12 L, ALT 32, Alkaline Phosphatase 71, Lipase 654 H 06/03/22 06:48: WBC 5.2, Hgb 14.2, Hct 41.3, Plt Count 281 06/03/22 06:48: Sodium 142, Potassium 3.7, BUN 14, Creatinine 0.96, Glucose 103 Assessment & Plan - Problems (Diagnosis) (1) Acute pancreatitis Current Visit: Yes Status: Acute - Plan plan: 1. IV fluids 2. Pain control 3. MRCP 4. Surgery consultation 5. N.p.o. after midnight 6. Repeat LFTs and lipase level 7. GI/DVT prophylaxis Discharge Plan: Home Plan to discharge in: 24 Hours - Advance Directives Does patient have a Living Will: No Does patient have a Durable POA for Healthcare: No - Code Status/Comfort Care Code Status Assessed: Yes Code Status: Full Code Critical Care: No Time Spent Managing PTS Care (In Minutes): 45
[2022-06-04] MEDS: NA CHLORIDE 0.9% 1,000 ML IV SCH ×2 (03:23→18:06)
[2022-06-04 05:40] LABS: Absolute Lymphocytes (CBC) 2.1 K/uL (0.7-4.9); Hematocrit 38.9 % (39.6-49.0); MCV 92.3 fL (80-100); MPV 9.1 fL (7.6-11.3); RBC Red Blood Cell Count 4.22 M/uL (4.33-5.43)
[2022-06-04 05:49] LABS: Protime INR 1.15
[2022-06-04 06:01] LABS: Albumin 3.4 g/dL (3.4-5.0); Bilirubin Total 0.7 mg/dL (0.2-1.0); Protein, Total 6.4 g/dL (6.4-8.2)
[2022-06-04] MEDS ORDERED: ROCURONIUM 50 MG/5 ML VIAL IV ONE (07:30)
[2022-06-04] MEDS ORDERED: MIDAZOLAM HCL 2 MG/2 ML INJ ONE (07:30)
[2022-06-04] MEDS ORDERED: LIDOCAINE 1% MPF 5 ML VIAL ONE (07:30)
[2022-06-04] MEDS ORDERED: FENTANYL CITR 100 MCG/2 ML ONE (07:30)
[2022-06-04] MEDS ORDERED: propofoL 200 MG/20 ML VIAL IV ONE ×2 (07:30→07:32)
[2022-06-04] MEDS ORDERED: ONDANSETRON 4 MG/2 ML VIAL ONE ×2 (07:31→11:03)
--- NOTE | 2022-06-04 08:20 | RAD REPORT ---
EXAM DESCRIPTION: MRICholangiogram06/04/2022 8:03 am CLINICAL HISTORY: Abdominal pain COMPARISON: June 03, 2022 cat scan and ultrasound TECHNIQUE: Magnetic resonance cholangiogram was performed.3D MIP reconstruction performed FINDINGS: Multiple gallstones. Gallbladder wall is not thickened. The biliary tree is normal caliber without a filling defect. Pancreatic duct is normal caliber IMPRESSION: Cholelithiasis without evidence of cholecystitis
[2022-06-04] MEDS ORDERED: Ringers Lactate 1,000 ML IV ONE (08:52)
[2022-06-04] MEDS ORDERED: CIPROFLOXACIN 400mg IV 400 MG/200 ML BAG IV ONE (09:21)
[2022-06-04] MEDS ORDERED: KETOROLAC 30 MG/ML INJ ONE (10:20)
[2022-06-04] MEDS ORDERED: Mastisol Adhesive Liq ONE (10:38)
[2022-06-04] MEDS: MORPHINE 4 MG/ML SYR ONE ×2 (10:58→11:09)
--- NOTE | 2022-06-04 11:08 | P.BOP ---
Preoperative diagnosis: acute cholecystitis, sympt cholelithiasis, gallstone pancreatitis Postoperative diagnosis: same plus umbilical hernia Primary procedure: Laparoscopic cholecysytectomy Secondary procedure: open repair of umbilical hernia Mail Weigher: Asia Oliver) Estimated blood loss: <10cc Specimen: gb Findings: as above Anesthesia: General Complications: None Transferred to: Recovery Room Condition: Good
[2022-06-04] MEDS ORDERED: HYDROCODONE/APAP 5/325 MG TAB PO PRN (11:12)
[2022-06-04] MEDS: MORPHINE 2 MG/ML SYR IV PRN ×2 (12:00→23:35)
[2022-06-04] MEDS: CIPROFLOXACIN 400mg IV 400 MG/200 ML BAG IV SCH (20:52)
--- NOTE | 2022-06-04 23:25 | P.PN ---
Subjective Date of Service: 06/04/22 Subjective: No new changes, No C/O voiced, Improving Review of Systems 10-point ROS is otherwise unremarkable Physical Examination - Vital Signs Temperature: 97.7 F Blood Pressure: 137/83 Pulse: 69 Respirations: 15 Pulse Ox (%): 100 - Physical Exam General: Alert, In no apparent distress HEENT: Atraumatic, PERRLA, EOMI Neck: Supple, JVD not distended Respiratory: Clear to auscultation bilaterally, Normal air movement Cardiovascular: Regular rate/rhythm, Normal S1 S2 Gastrointestinal: Normal bowel sounds, No tenderness Musculoskeletal: No tenderness Integumentary: No rashes Neurological: Normal speech, Normal tone, Normal affect Lymphatics: No axilla or inguinal lymphadenopathy - Studies Medications List Reviewed: Yes Assessment & Plan - Problems (Diagnosis) (1) Acute pancreatitis Current Visit: Yes Status: Acute - Plan plan: 1. IV fluids 2. Pain control 3. MRCP was negative 4. Surgery consultation appreciated; patient status post lap madan 5. advanced diet as tolerated 6. Repeat LFTs and lipase level; anticipate discharge in the morning 7. GI/DVT prophylaxis - Advance Directives Does patient have a Living Will: No Does patient have a Durable POA for Healthcare: No - Code Status/Comfort Care Code Status: Full Code
[2022-06-05] MEDS ORDERED: ZOLPIDEM TARTRATE 5 MG TABLET PO PRN (02:51)
[2022-06-05] MEDS: NA CHLORIDE 0.9% 1,000 ML IV SCH (05:29)
[2022-06-05] MEDS: CIPROFLOXACIN 400mg IV 400 MG/200 ML BAG IV SCH (09:45)
[2022-06-08 21:11] VITALS: BP 137/83; TEMP 97.7
--- NOTE | 2022-06-08 21:11 | P.DS ---
Discharge Date: 06/05/22 Disposition: ROUTINE DISCHARGE Discharge Condition: GOOD Reason for Admission: Cholelithiasis with acute pancreatitis - Problems (1) Acute pancreatitis Status: Acute Brief History of Present Illness: patient is a 27-year-old gentleman who came to the hospital with severe abdominal pain. Pain was mainly in the epigastric area and radiated to the right upper quadrant. Patient had imaging studies which revealed acute cholelithiasis with acute pancreatitis. Lipase is elevated as well. Patient will be admitted to the hospital for further treatment. Patient denied alcohol use. He states he has been told he has gallstones. This is the 2nd time he has had recurring episode. He will be admitted for further treatment. Hospital Course: Patient is status post laparoscopic cholecystectomy. Patient's clinical symptoms are improved. Patient is stable for discharge home with outpatient follow-up. Vital Signs/Physical Exam: Temp Pulse Resp BP Pulse Ox 98.5 F 71 16 103/59 L 99 06/05/22 08:00 06/05/22 08:00 06/05/22 08:00 06/05/22 08:00 06/05/22 08:00 General: Alert, In no apparent distress, Oriented x3 Laboratory Data at Discharge: WBC 5.9 K/uL (4.3-10.9) 06/04/22 05:20 Hgb 13.3 g/dL (13.6-17.9) L 06/04/22 05:20 Hct 38.9 % (39.6-49.0) L 06/04/22 05:20 Plt Count 258 K/uL (152-406) 06/04/22 05:20 PT 12.7 SECONDS (9.5-12.5) H 06/04/22 05:20 INR 1.15 06/04/22 05:20 APTT 31.8 SECONDS (24.3-36.9) 06/04/22 05:20 Sodium 142 mmol/L (136-145) 06/04/22 05:20 Potassium 4.0 mmol/L (3.5-5.1) 06/04/22 05:20 BUN 10 mg/dL (7-18) 06/04/22 05:20 Creatinine 0.97 mg/dL (0.55-1.3) 06/04/22 05:20 Glucose 91 mg/dL (74-106) 06/04/22 05:20 Total Bilirubin 0.7 mg/dL (0.2-1.0) 06/04/22 05:20 AST 10 U/L (15-37) L 06/04/22 05:20 ALT 29 U/L (12-78) 06/04/22 05:20 Alkaline Phosphatase 62 U/L (45-117) 06/04/22 05:20 Lipase Cancelled 06/04/22 06:00 Home Medications: Ciprofloxacin HCl 250 mg PO BID #14 tablet 06/05/22 Hydrocodone 5/APAP 325 [Kimberly 5/325] 1 tab PO Q6H PRN #28 tab 06/05/22 New Medications: Ciprofloxacin HCl 250 mg PO BID #14 tablet Hydrocodone 5/APAP 325 [Kimberly 5/325] 1 tab PO Q6H PRN #28 tab PRN Reason: Pain Physician Discharge Instructions: Keep area dry for 24h then may remove outer dressing and shower. Keep sterile strips intact. OK TO DC IV AND DC HOME FOLLOW-UP WITH PRIMARY CARE PROVIDER IN 1-2 WEEKS FOLLOW-UP WITH Surgery in 1 week RETURN TO THE ER IF Symptoms worsen CALL DR. MARCANO AT [phone] IF ANY QUESTIONS REGARDING HOSPITAL STAY. PLEASE CALL THE FLOOR AT [phone] IF ANY MEDICATION OR NURSING QUESTIONS. Diet: low fat Activity: No lifting more than 10 lbs Followup: Bg Coleman MD [ACTIVE - CAN ADMIT] - 1 Week NONE,NONE [Primary Care Provider] - Time spent managing pt's care (in minutes): 35
--- NOTE | 2022-06-11 00:42 | OP ---
Date of Procedure: 06/04/2022 Surgeon: Bg Coleman MD Policyholder Information Clerk: Asia Ignacio Preoperative Diagnoses: Acute cholecystitis, symptomatic cholelithiasis, gallstone pancreatitis. Postoperative Diagnoses: Acute cholecystitis, symptomatic cholelithiasis, gallstone pancreatitis, um bilical hernia. Procedures: 1.Laparoscopic cholecystectomy. 2.Open repair of umbilical hernia. Estimated Blood Loss: Less than 10 mL. Specimen: Gallbladder. Findings: The patient has not only gallbladder disease, but also has umbilical hernia. Anesthesia: General plus local. Complications: None. Indication: This is a case of a male who comes to us with above diagnoses. Fully explained the bene fits, alternatives, and risks of laparoscopic, possible open cholecystectomy which include, but not l imited to, infection, bleeding, damage to adjacent structures, anesthesia complication, choledocholit hiasis, bile leak, pancreatitis, CA, and even . He also understands this may not relieve the sy mptoms. He might need more than one surgical intervention. He understood and signed consent. Procedure In Detail: The patient was brought to the operating room and placed in supine position. A nesthesia was done without complication. A time-out was called. Abdomen was prepped and draped in a sterile fashion. Local anesthetic was applied over the periumbilical region. Incision was carried down to the fascia. When we noticed the patient had 1 hernia sac, that was removed from umbilical sk in. Hernia sac was opened. Omentum that was trapped in that area was reduced back into the abdomina l cavity after fully inspected. Hernia sac was removed. Then the incision was opened a little bit m ore to accommodate the Vivian trocar. Vicryl #1 was placed inside the fascia. Vivian trocar was car efully introduced. Pneumoperitoneum was obtained. I placed 3 more trocars, 5 mm each one of them; o ne in the epigastric area and two in the right upper quadrant under direct visualization. This allow ed me to put a grasper in the fundus of the gallbladder, another grasper in the infundibulum, retract ing the gallbladder in the inferolateral fashion, exposing the triangle of Calot, obtaining critical view. Cystic duct and cystic artery were clearly isolated, freed circumferentially, and a connection between those and the gallbladder was clearly identified. I proceeded to ligate those by using at l east 3 clips proximal, 1 clip distal, ligation in the middle. Same was done with the cystic artery. No bile leak. No bleeding. The gallbladder was removed from liver using Bovie cauterizer and remov ed from the abdominal cavity using Endo Catch through the umbilical incision. The area was inspected once again. No bile leak. No bleeding. At that moment, I proceeded to remove the trocars under di rect vision. Deflated pneumoperitoneum. Closed at the fascia with #1 Vicryl and the umbilical herni a. Closed subcutaneous tissue with 3-0 chromic. Sterile dressing was placed over the area. The pat ient tolerated the procedure well. The patient was sent to recovery in stable condition. DALLAS/VICKEY Voice ID: [id number] Report ID: [id number]
--- OUTSIDE RECORDS SUMMARY | 2022-06-12 23:15 | XMS REPORT | Continuity of Care Document ---
:1995 Author Organization [facility] t Address [address] [place] [address] Care Team Providers Name Role Phone Violet Cisneros Attending Clinician Unavailable CISNEROS Admitting Clinician Unavailable Payers Payer Name Policy Type Policy Number Effective Date Expiration Date S chris [employer] [id number] 2016 NON-CONTRACT 00:00:00 GENERIC Problems This patient has no known problems. Allergies, Adverse Reactions, Alerts Allergy Allergy Status Severity Reaction(s) Onset Inactive Treating Comm ents Source Name Type Date Date Clinician [facility] [employer] Active Anaphylaxis Uni vers IN [facility] 05-23 ity of 00:00: [address] Medications This patient has no known medications. Procedures This patient has no known procedures. Encounters Start End Encounter Admission Attending Care Care Encounter Source Date/Time Date/Time Type Type Clinicians Facility Department ID 2021-12-19 Outpatient BARB Cisneros [id number] Common 14:17:42 [facility] [id number] [facility] 2021-05-09 2021-05-09 Emergency X [facility] ERT [id number] 12:58:00 12:58:00 [facility] of [facility] Results This patient has no known results.
== END 2022-06-05 12:10 | disposition home or self-care (01) | DRG 417 ==
LOC: ER 06:31 → ERHOLD 14:57 → 2ND 19:23
PROVIDERS: ADMIT Hospitalist; ATTEND Hospitalist
PROC: 0WQF0ZZ Repair Abdominal Wall, Open Approach (ICD-10-PCS; 2022-06-04)
PROC: 0FT44ZZ Resection of Gallbladder, Percutaneous Endoscopic Approach (ICD-10-PCS; principal; 2022-06-04 09:00)
DX: K80.00 Calculus of gallbladder with acute cholecystitis without obstruction (principal); K85.10 Biliary acute pancreatitis without necrosis or infection; K42.9 Umbilical hernia without obstruction or gangrene; Z20.822 Contact with and (suspected) exposure to COVID-19; F17.210 Nicotine dependence, cigarettes, uncomplicated; Z88.0 Allergy status to penicillin
CPT/HCPCS: 36415; 71045; 74177; 74181; 76705; 80048; 80053; 80076; 80307; 81003; 83690; 84484; 85025; 85610; 85730; 88302; 88304; 93005; 94010; 96374; 96375; 99284; J0744; J2250; J2270; J2405; J2704; J3010; J7030; J7120; Q9967; U0003